=== PATIENT | male | born 1935 ===

== ENCOUNTER 2019-09-17 08:16 | Emergency (ER) | payer OTHER ==
[~2019-09-17] VITALS: Ht 177.8 cm; Wt 81.7 kg
[~2019-09-17 08:16] MED LIST: FINA5 PO; HYDR1TAB94 PO; METO25; RELISTOR; TERA5 PO; TOBR.3OPSO BOTHEYES; [UNRECOGNIZED DRUG - CODE] PO
[2019-09-17 08:53] LABS: BASOPHILS ABSOLUTE AUTO 0.03 K/mm3 (0.00-0.23); BASOPHILS PERCENT AUTO 1 % (0-2); EOSINOPHILS ABSOLUTE AUTO 0.07 K/mm3 (0.00-0.68); EOSINOPHILS PERCENT AUTO 2 % (0-6); Hematocrit 41.5 % (37.0-53.0); Hemoglobin 13.9 g/dL (13.5-17.5); IMMATURE GRAN ABSOLUTE AUTO 0.01 K/mm3 (0.00-0.10); IMMATURE GRAN PERCENT AUTO 0 % (0-1); LYMPHOCYTES ABSOLUTE AUTO 1.49 K/mm3 (0.84-5.20); LYMPHOCYTES PERCENT AUTO 37 % (21-46); MONOCYTES ABSOLUTE AUTO 0.36 K/mm3 (0.16-1.47); MONOCYTES PERCENT AUTO 9 % (4-13); Mean Corpuscular HGB 28.2 pg (26.0-34.0); Mean Corpuscular HGB Conc 33.5 g/dL (31.5-36.5); Mean Corpuscular Volume 84 fL (80-100); Mean Platelet Volume 9.1 fL (9.1-12.4); NEUTROPHILS ABSOLUTE AUTO 2.08 K/mm3 (1.96-9.15); NEUTROPHILS PERCENT AUTO 52 % (41-73); Platelet Count 196 K/mm3 (150-400); RDW Coefficient Variation 13.7 % (11.7-14.2); RDW Standard Deviation 42.5 fL (35.1-46.3); Red Blood Cell Count 4.93 M/mm3 (4.30-5.90); White Blood Cell Count 4.04 K/mm3 (4.00-11.30)
[2019-09-17 09:04] LABS: Alanine Aminotransfer (ALT/SGP 33 U/L (12-78); Albumin, Blood 3.6 g/dL (3.4-5.0); Albumin/Globulin Ratio 1.1 (0.8-1.8); Alk Phos 77 U/L (50-136); Anion Gap 7 mmol/L (6-16); Aspartate Aminotrans (AST/SGOT 22 U/L (12-37); Bilirubin, Total 0.7 mg/dL (0.1-1.0); Blood Urea Nitrogen 5 mg/dL (8-24); Bun/Creatinine Ratio 6.9 (12.0-20.0); CO2, Blood 25 mmol/L (21-32); Calcium, Blood 8.6 mg/dL (8.5-10.1); Chloride, Blood 108 mmol/L (98-108); Creatinine, Blood 0.72 mg/dL (0.60-1.20); Globulin, Blood 3.2 g/dL (2.2-4.0); Glomerular Filtration Rate >60 (60-); Glucose, Blood 98 mg/dL (70-99); Potassium, Blood 3.7 mmol/L (3.5-5.5); Sodium, Blood 140 mmol/L (136-145); Total Protein, Blood 6.8 g/dL (6.4-8.2)
[2019-09-17 09:59] LABS: Source, Urine Clean Catch
[2019-09-17 10:05] LABS: Bilirubin, Urine Neg (Neg); Blood, Urine Neg (Neg); Glucose Qualitative, Urine Neg (Neg); Ketones, Urine Neg (Neg); Leukocyte Esterase, Urine Neg (Neg); Nitrite, Urine Neg (Neg); Protein, Urine Neg (Neg); Specific Gravity, Urine 1.005 (1.003-1.022); Urobilinogen, Urine NORM (Normal)
[2019-09-17 10:15] LABS: Appearance, Urine Clear (Clear); Color, Urine Yellow (P-Yellow)
[2019-09-17] MEDS ORDERED: IBUP800 PO (10:26)
[2019-09-17] MEDS ORDERED: Prednisone20 MG PO (10:26)
[2019-09-17] MEDS ORDERED: Robaxin-750750 MG PO (10:26)
== END 2019-09-17 11:09 | disposition home or self-care (01) ==
LOC: ER 08:16
PROVIDERS: Physician Assistant
DX: K52.9 Noninfective gastroenteritis and colitis, unspecified (principal); M54.31 Sciatica, right side; Z87.891 Personal history of nicotine dependence; Z90.49 Acquired absence of other specified parts of digestive tract
CPT/HCPCS: 74177; 80053; 81003; 83690; 85025; 96361; 96374-59; 99284-25; J1885; J7030; J7512; Q9967

== ENCOUNTER 2021-02-10 08:54 | Observation (INO) | payer OTHER, MEDICARE ==
[~2021-02-10] VITALS: Ht 180.3 cm; Wt 76.8 kg
[~2021-02-10 08:54] MED LIST changes: +IBUP800 PO; -METO25; +METO25 PO; +Prednisone20 MG PO; +Robaxin-750750 MG PO
[2021-02-10 09:21] LABS: BASOPHILS ABSOLUTE AUTO 0.04 K/mm3 (0.00-0.23); BASOPHILS PERCENT AUTO 1 % (0-2); EOSINOPHILS ABSOLUTE AUTO 0.06 K/mm3 (0.00-0.68); EOSINOPHILS PERCENT AUTO 1 % (0-6); Hematocrit 39.1 % (37.0-53.0); Hemoglobin 13.5 g/dL (13.5-17.5); IMMATURE GRAN ABSOLUTE AUTO 0.01 K/mm3 (0.00-0.10); IMMATURE GRAN PERCENT AUTO 0 % (0-1); LYMPHOCYTES ABSOLUTE AUTO 1.45 K/mm3 (0.84-5.20); LYMPHOCYTES PERCENT AUTO 29 % (21-46); MONOCYTES ABSOLUTE AUTO 0.51 K/mm3 (0.16-1.47); MONOCYTES PERCENT AUTO 10 % (4-13); Mean Corpuscular HGB 29.7 pg (26.0-34.0); Mean Corpuscular HGB Conc 34.5 g/dL (31.5-36.5); Mean Corpuscular Volume 86 fL (80-100); Mean Platelet Volume 9.6 fL (9.1-12.4); NEUTROPHILS ABSOLUTE AUTO 3.02 K/mm3 (1.96-9.15); NEUTROPHILS PERCENT AUTO 59 % (41-73); Platelet Count 170 K/mm3 (150-400); RDW Coefficient Variation 13.4 % (11.7-14.2); Red Blood Cell Count 4.55 M/mm3 (4.30-5.90); White Blood Cell Count 5.09 K/mm3 (4.00-11.30)
[2021-02-10 09:39] LABS: Alanine Aminotransfer (ALT/SGP 23 U/L (12-78); Albumin, Blood 3.7 g/dL (3.4-5.0); Albumin/Globulin Ratio 1.3 (0.8-1.8); Alk Phos 78 U/L (50-136); Anion Gap 7 mmol/L (6-16); Aspartate Aminotrans (AST/SGOT 17 U/L (12-37); Bilirubin, Total 0.7 mg/dL (0.1-1.0); Blood Urea Nitrogen 8 mg/dL (8-24); Bun/Creatinine Ratio 11.2 (12.0-20.0); CO2, Blood 25 mmol/L (21-32); Calcium, Blood 8.2 mg/dL (8.5-10.1); Chloride, Blood 103 mmol/L (98-108); Creatinine, Blood 0.72 mg/dL (0.60-1.20); Globulin, Blood 2.9 g/dL (2.2-4.0); Glomerular Filtration Rate >60 (60-); Glucose, Blood 104 mg/dL (70-99); Sodium, Blood 135 mmol/L (136-145); Total Protein, Blood 6.6 g/dL (6.4-8.2); Troponin I <0.015 ng/mL (0.000-0.040)
[2021-02-10] MEDS ORDERED: ALFU10 PO (11:00)
[2021-02-10] MEDS ORDERED: ALBU8HFA2 INH (11:02)
--- NOTE | 2021-02-10 15:09 | NUR ---
Echocardiogram completed.
[2021-02-10] MEDS ORDERED: METO50 PO (16:10)
--- NOTE | 2021-02-10 18:29 | NUR ---
PT ARRIVED TO THE UNIT. ORIENTED TO THE ROOM. ST WORKED WITH HIM ADVANCED DIET TO REGULAR WITH NO MIXED CONS. HE WORKED WITH PT AND TOLERATED WELL. HIS IS AT BEDSIDE.
--- NOTE | 2021-02-10 19:00 | NUR ---
ASSUMED CARE RECEIVED REPORT FROM PONCE LI. PT RESTING, IN NAD. NO ACUTE NEEDS ASSESSED AT THIS TIME. CALL LIGHT, POSSESSION IN REACH.
--- NOTE | 2021-02-10 21:54 | NUR ---
SPOKE TO DR. PERRY REGARDING PT'S C/O PAIN AND HOME DOSE OF NORCO 10/325. ORDERS RECEIVED.
[2021-02-10] MEDS ORDERED: Norco 10-325 T1 EACH PO (22:08)
[2021-02-11 04:47] LABS: Hematocrit 37.8 % (37.0-53.0); Hemoglobin 13.1 g/dL (13.5-17.5); Mean Corpuscular HGB 29.5 pg (26.0-34.0); Mean Corpuscular HGB Conc 34.7 g/dL (31.5-36.5); Mean Corpuscular Volume 85 fL (80-100); Mean Platelet Volume 9.7 fL (9.1-12.4); Platelet Count 167 K/mm3 (150-400); RDW Coefficient Variation 13.2 % (11.7-14.2); RDW Standard Deviation 41.1 fL (35.1-46.3); Red Blood Cell Count 4.44 M/mm3 (4.30-5.90); White Blood Cell Count 4.22 K/mm3 (4.00-11.30)
[2021-02-11 05:09] LABS: Anion Gap 5 mmol/L (6-16); Blood Urea Nitrogen 8 mg/dL (8-24); Bun/Creatinine Ratio 10.1 (12.0-20.0); CHOL/HDL RATIO 2.9; CO2, Blood 27 mmol/L (21-32); Calcium, Blood 8.3 mg/dL (8.5-10.1); Chloride, Blood 105 mmol/L (98-108); Cholesterol 159 mg/dL (50-200); Glomerular Filtration Rate >60 (60-); Glucose, Blood 86 mg/dL (70-99); HDL Cholesterol 55 mg/dL (>39); LDL/HDL RATIO 1.3; Low Density Lipoprotein Chol 74 mg/dL (0-110); Potassium, Blood 3.7 mmol/L (3.5-5.5); Sodium, Blood 137 mmol/L (136-145); Triglycerides 150 mg/dL (30-160); Very Low Density Lipoprot Chol 30 mg/dL (6-32)
--- NOTE | 2021-02-11 06:33 | NUR ---
CHIEF LIBRARIAN WORK WITH BLIND SUMMARY PT RESTING, IN NAD. VS REVIEWED,WNL. SLEPT ON AND OFF T/O NIGHT. NEURO STATUS STABLE, BP'S WNL. DENIES BAUM, NUMBNESS/TINGLING. NO ACUTE CHANGES IN CONDITION NOTED OVERNIGHT; PT INDEPENDENT IN ROOM. DENIES NEEDS. CALL LIGHT, POSSESSIONS IN REACH, BED IN LOW POSITION. WILL CONTINUE TO PROVIDE CARE UNTIL REPORT GIVEN TO ONCOMING RN.
--- NOTE | 2021-02-11 11:55 | NUR ---
THIS RN WAS NOTIFIED BY [employer] STAFF THAT PATIENT HAD A 1ST DEGREE HEART BLOCK AT 73 BPM. PT DENIES CP OR SOB OR ANY OTHER DISCOMFORT UPON ASSESSMENT. BP: 144/89 P: 65 BPM. PT CALM AND COMFORTABLE IN BED AT THIS TIME. NOTIFIED DR. MARTIN, NO FURTHER ORDERS NOTED. BED AT LOWEST POSITION, CALL LIGHT WITHIN REACH.
[2021-02-11] MEDS ORDERED: ASPI325 PO (14:29)
--- NOTE | 2021-02-11 15:49 | NUR ---
DISCHARGE SUMMARY PT DISCHARGE THIS SHIFT AT 1505. PT's AT BEDSIDE DURING DISCHARGE PROCESS. PT AND FAMILY VERBALIZED UNDERSTANDING OF DISCHARGE ORDERS. NO C/O PAIN OR ANY DISCOMFORT NOTED, NO ISSUES OR CONCERNS NOTED FROM PATIENT OR FAMILY DURING DISCHARGE PROCESS. IV LINE AND TELE DISCONTINUED PRIOR TO D/C. DISCHARGE PAPERWORK GIVEN TO PATIENT UPON DISCHARGE.
== END 2021-02-11 15:30 | disposition home or self-care (01) ==
LOC: ER 08:54 → ERHOLD 08:55 → MEDS 13:45
PROVIDERS: Emergency Medicine; ADMIT Internal Medicine
DX: G45.9 Transient cerebral ischemic attack, unspecified (principal); I10 Essential (primary) hypertension; N40.0 Benign prostatic hyperplasia without lower urinary tract symptoms; M19.90 Unspecified osteoarthritis, unspecified site; G89.4 Chronic pain syndrome; K91.1 Postgastric surgery syndromes; R00.1 Bradycardia, unspecified; E87.1 Hypo-osmolality and hyponatremia; Z88.0 Allergy status to penicillin; Z88.5 Allergy status to narcotic agent; Z85.038 Personal history of other malignant neoplasm of large intestine; Z87.11 Personal history of peptic ulcer disease; Z79.891 Long term (current) use of opiate analgesic; Z90.49 Acquired absence of other specified parts of digestive tract; Z90.3 Acquired absence of stomach [part of]; Z66 Do not resuscitate
CPT/HCPCS: 36415; 70450; 70551; 80048; 80053; 80061; 83036; 83690; 84484; 85025; 85027; 92610; 93005; 93010; 93306; 93880; 94760; 96372; 97161; 99285-25; A9270; G0378; J1650

== ENCOUNTER 2022-08-21 13:49 | Day surgery (SDC) | payer OTHER ==
[~2022-08-21] VITALS: Ht 177.8 cm; Wt 76.3 kg
[~2022-08-21 13:49] MED LIST changes: +ALBU8HFA2 INH; +ALFU10 PO; +ASPI325 PO; +METO50 PO; +Norco 10-325 T1 EACH PO; +PROP10 PO; +RIFA550T2 PO
[2022-08-21] MEDS ORDERED: LOSA25 (14:31)
--- NOTE | 2022-08-21 14:40 | NUR ---
08/21/22 1440 Leighann Celaya CALL LIGHT WITHIN REACH. [place] IN AT 1432 IN RIGHT EYE AND [place] AT 1435
== END 2022-08-21 16:02 | disposition home or self-care (01) ==
LOC: ORSCSDS 13:49
PROVIDERS: Ophthalmology
PROC: 08RJ3JZ Replacement of Right Lens with Synthetic Substitute, Percutaneous Approach (ICD-10-PCS; principal; 2022-08-21 15:00)
DX: H25.11 Age-related nuclear cataract, right eye (principal); I48.91 Unspecified atrial fibrillation; I10 Essential (primary) hypertension; Z86.73 Personal history of transient ischemic attack (TIA), and cerebral infarction without residual deficits; Z79.899 Other long term (current) drug therapy
CPT/HCPCS: J2001; J2250; J3010; J3301; J7040; V2632

== ENCOUNTER 2022-08-28 12:15 | Day surgery (SDC) | payer OTHER ==
[~2022-08-28] VITALS: Ht 177.8 cm; Wt 77.8 kg
[~2022-08-28 12:15] MED LIST changes: +LOSA25
== END 2022-08-28 14:20 | disposition home or self-care (01) ==
LOC: ORSCSDS 12:15
PROVIDERS: Ophthalmology
PROC: 08DK3ZZ Extraction of Left Lens, Percutaneous Approach (ICD-10-PCS; principal; 2022-08-28 13:30)
DX: H25.12 Age-related nuclear cataract, left eye (principal); Z96.1 Presence of intraocular lens; H21.81 Floppy iris syndrome; Z87.891 Personal history of nicotine dependence; I48.91 Unspecified atrial fibrillation; I63.9 Cerebral infarction, unspecified; I10 Essential (primary) hypertension; Z79.899 Other long term (current) drug therapy
CPT/HCPCS: J2250; J3010; J3301; J7040; V2632